=== PATIENT | female | born 1965 | race American Indian/Alaskan Native ===

== ENCOUNTER 2017-09-22 21:28 | Emergency (ER) | payer MEDICARE ==
[2017-09-22 22:05] VITALS: BP 150/80
[2017-09-22] MEDS ORDERED: TORADOL IM ONE (23:12)
--- NOTE | 2017-09-22 23:14 | Emergency Department Report ---
HPI - General Chief Complaint: Fall Time Seen by Provider: 09/22/17 22:32 - HPI HPI: Patient is a 29-year-old female who presents ED complaining of left foot pain times today. Patient states earlier she was foot deep pool when she slipped on a wet floor and fell upper position. Patient states she did not hit her head or sustain any injuries to her head or neck. Patient complains of left lateral foot pain since incident. Exercise she states dog that is localized to the left anterior lateral part of the foot. She states minimal swelling of that area and pain with pressure. Patient states she is able to ambulate on the foot , denies loss of sensation. She denies fevers chills nausea vomiting shortness of breath chest pain ED Past Medical Hx - Past Medical History Previous Medical History?: Yes Additional medical history: headaches, shingles - Surgical History Past Surgical History?: Yes Additional Surgical History: tubaligation, fibroids, eye R artificla lens, Left eye retinal - Social History Smoking Status: Never Smoker Substance Use Type: None - Medications Home Medications: Home Medications Medication Instructions Recorded Confirmed Last Taken Type Cyclobenzaprine [Flexeril] 10 mg PO QHS PRN #20 tablet 09/22/17 Unknown Rx Naproxen [Naprosyn] 500 mg PO BID #30 tablet 09/22/17 Unknown Rx ED Review of Systems ROS: Stated complaint: LEFT FOOT PAIN Other details as noted in HPI Constitutional: denies: chills, fever Eyes: denies: eye pain, eye discharge, vision change ENT: denies: ear pain, throat pain Respiratory: denies: cough, shortness of breath, wheezing Cardiovascular: denies: chest pain, palpitations Endocrine: no symptoms reported Gastrointestinal: denies: abdominal pain, nausea, diarrhea Genitourinary: denies: urgency, dysuria, discharge Musculoskeletal: denies: back pain, joint swelling, arthralgia Skin: denies: rash, lesions Neurological: denies: headache, weakness, paresthesias Psychiatric: denies: anxiety, depression Hematological/Lymphatic: denies: easy bleeding, easy bruising Physical Exam - Physical Exam Vital Signs: Vital Signs 09/22/17 21:58 Temperature 97.8 F Pulse Rate 87 Respiratory 16 Rate Blood Pressure 150/80 O2 Sat by Pulse 97 Oximetry Physical Exam: GENERAL: Alert and oriented x3, no apparent distress, Normal Gait, atraumatic. HEAD: Head is normocephalic and a-traumatic. NECK: Supple. Non edematous, No lymphadenopathy or thyromegaly. No C-spine tenderness LUNGS: Symetrical with respiration, No wheezing, no rales or crackles, CTAB. HEART: S1, S2 present, regular rate and rhythm without murmur, no rubs, no gallops. Non tender to palpation BACK: Full range of motion, no spinal tenderness, nontender to palpation. EXTREMITIES/MUSCULOSKELETAL: No cyanosis, clubbing, rash, lesions or edema. Full ROM bilaterally. UE/LE Pulses 2+ bilaterally. LE and UE 5+ strength bilaterally, tenderness to palpation of the left anterior lateral aspect of the foot. Mild swelling, no ecchymosis, ankle joint is intact bilaterally patient able to flex and extend foot and toes. NEUROLOGIC: The patient is cooperative with no focal neurologic deficits.Normal speech. Normal sensation in bilateral upper and lower extremities, No loss of sensation, SKIN: Warm and dry, No lesions, No ulceration or induration present. ED Course Vital Signs 09/22/17 21:58 Temperature 97.8 F Pulse Rate 87 Respiratory 16 Rate Blood Pressure 150/80 O2 Sat by Pulse 97 Oximetry ED Medical Decision Making - Radiology Data Radiology results: report reviewed, image reviewed FINAL REPORT PROCEDURE: XR ANKLE 3+V LT TECHNIQUE: LEFT ankle radiographs, AP, lateral, and oblique views. CPT 04933 HISTORY: Fall. COMPARISON: Left foot radiographs dated same day and time. FINDINGS: Fracture (s) and/or Dislocation(s): Oblique fracture through the base of the 5th metatarsal. This extends to the tarsometatarsal joint. 2-3 mm diastasis at the site of fracture. Alignment: Normal. Joint space(s): Tiny os navicularis. Soft tissues: Mild soft tissue swelling about the ankle. Bone mineralization: Normal. Foreign bodies: None. Calcaneal spurring: Small plantar and calcaneal tiny calcaneal spurs. IMPRESSION: Posttraumatic fracture through the base of the 5th metatarsal. Mild soft tissue swelling about the ankle.. Transcribed By: FRIDA Dictated By: YENNIFER MCKINNEY MD Electronically Authenticated By: YENNIFER MCKINNEY MD Signed Date/Time: 09/22/17 4019 - Medical Decision Making 52-year-old female presents with fifth metatarsal bone fracture ED course: X-rays obtained. X-ray shows fracture of the fifth metatarsal bone nondisplaced knee Discussed this findings with the patient Vital signs are normal patient is in no acute distress Discussed with patient follow-up with primary care physician. Discussed the patient and take medications as prescribed. Discussed the patient follow-up with orthopedic doctor Patient has no neurological deficit. Patient is alert and oriented 3 and understands all instructions given. Discussed drowsiness effect of Flexeril makes her drowsy and not to operate machinery while taking flexeril Discussed with patient to follow up with orthopedic doctor. Patient put in the Nikolai wrap and postop shoe Critical care attestation.: If time is entered above; I have spent that time in minutes in the direct care of this critically ill patient, excluding procedure time. ED Disposition Clinical Impression: Fracture of metatarsal bone of left foot Fall from slipping Qualifiers: Encounter type: initial encounter Qualified Code(s): W01.0XXA - Fall on same level from slipping, tripping and stumbling without subsequent striking against object, initial encounter Disposition: DC-01 TO HOME OR SELFCARE Is pt being admited?: No Does the pt Need Aspirin: No Condition: Stable Instructions: Foot Fracture in Adults (ED), Arthralgia (ED), Ankle Exercises ( GEN), RICE Therapy (ED) Additional Instructions: Make sure to follow up with the orthopedic as discussed. Take all your medications as you've been prescribed. If you have any worsening symptoms or develop new symptoms please return to ED immediately. Prescriptions: Cyclobenzaprine [Flexeril] 10 mg PO QHS PRN #20 tablet PRN Reason: Muscle Spasm Naproxen [Naprosyn] 500 mg PO BID #30 tablet Referrals: [facility] [Outside] - 3-5 Days [facility] [Outside] - 3-5 Days [facility] [Outside] - 3-5 Days CHRISTOS SWIFT MD [Staff Physician] - 3-5 Days Forms: Accompanied Note, Work/School Release Form(ED) Time of Disposition: 00:05
[2017-09-22] MEDS ORDERED: TORADOL ONE (23:33)
--- NOTE | 2017-09-22 23:45 | XRay Report ---
FINAL REPORT PROCEDURE: XR ANKLE 3+V LT TECHNIQUE: LEFT ankle radiographs, AP, lateral, and oblique views. CPT 28882 HISTORY: Fall. COMPARISON: Left foot radiographs dated same day and time. FINDINGS: Fracture (s) and/or Dislocation(s): Oblique fracture through the base of the 5th metatarsal. This extends to the tarsometatarsal joint. 2-3 mm diastasis at the site of fracture. Alignment: Normal. Joint space(s): Tiny os navicularis. Soft tissues: Mild soft tissue swelling about the ankle. Bone mineralization: Normal. Foreign bodies: None. Calcaneal spurring: Small plantar and calcaneal tiny calcaneal spurs. IMPRESSION: Posttraumatic fracture through the base of the 5th metatarsal. Mild soft tissue swelling about the ankle..
--- NOTE | 2017-09-22 23:46 | XRay Report ---
FINAL REPORT PROCEDURE: XR FOOT 3+V LT TECHNIQUE: LEFT foot radiographs, AP, lateral, and oblique views. CPT 17583 HISTORY: Fall. COMPARISON: Left ankle radiographs dated same day and time. FINDINGS: Fracture (s) and/or Dislocation(s): Oblique fracture through the base of the 5th metatarsal. This extends to the tarsometatarsal joint. 2-3 mm diastasis at the site of fracture. Alignment: Normal. Joint space(s): Tiny os navicularis. Soft tissues: Mild soft tissue swelling about the ankle. Bone mineralization: Normal. Foreign bodies: None. Calcaneal spurring: Small plantar and calcaneal tiny calcaneal spurs. IMPRESSION: Posttraumatic fracture through the base of the 5th metatarsal. Mild soft tissue swelling about the ankle..
== END 2017-09-23 00:26 | disposition home or self-care (01) ==
LOC: ED 21:28
DX: S92.352A Displaced fracture of fifth metatarsal bone, left foot, initial encounter for closed fracture (principal); W01.0XXA Fall on same level from slipping, tripping and stumbling without subsequent striking against object, initial encounter; Y93.89 Activity, other specified; Y92.89 Other specified places as the place of occurrence of the external cause; Y99.8 Other external cause status
CPT/HCPCS: 73610; 73630; 96372; 99283; J1885

== ENCOUNTER 2017-11-08 13:44 | Outpatient (CLI) | payer MEDICARE ==
--- NOTE | 2017-11-08 14:51 | XRay Report ---
Left foot 3 views: History: Pain in left foot. Findings: There is nondisplaced fracture at the base of the fifth metatarsal. Spur posterior inferior and posterior superior calcaneum. Normal articular surfaces. No dislocation. Impression: Nondisplaced fracture base of the fifth metatarsal left foot.
== END 2017-11-08 13:45 | disposition home or self-care (01) ==
LOC: XRAY 13:44
PROVIDERS: ATTEND Orthopaedic Surgery
DX: S92.355A Nondisplaced fracture of fifth metatarsal bone, left foot, initial encounter for closed fracture (principal); M77.32 Calcaneal spur, left foot; X58.XXXA Exposure to other specified factors, initial encounter; Y93.89 Activity, other specified; Y92.89 Other specified places as the place of occurrence of the external cause; Y99.8 Other external cause status

== ENCOUNTER 2018-01-04 13:24 | Outpatient (CLI) | payer MEDICARE ==
--- NOTE | 2018-01-04 15:11 | XRay Report ---
Left foot: Followup left fifth digit fracture. Routine views are compared to prior exams dating back to August 2017. This is a fracture through the base of the fifth metatarsal with moderate separation. This remains essentially unchanged and there is no bony union identified. The remainder of the fifth digit as well as the remainder of the foot appears generally unremarkable and unchanged. Impression: Non-bony union of fifth metatarsal fracture.
== END 2018-01-04 13:25 | disposition home or self-care (01) ==
LOC: XRAY 13:24
PROVIDERS: ATTEND Orthopaedic Surgery
DX: S92.352K Displaced fracture of fifth metatarsal bone, left foot, subsequent encounter for fracture with nonunion (principal); X58.XXXD Exposure to other specified factors, subsequent encounter; J45.909 Unspecified asthma, uncomplicated

== ENCOUNTER 2019-06-16 14:47 | Emergency (ER) | payer MEDICARE | END 2019-06-16 20:32 | disposition home or self-care (01) | LOC: ED 14:47 | CPT/HCPCS: 71046 ==